=== PATIENT | male | born 1945 | race Hispanic/Latino ===

== ENCOUNTER 2018-08-08 14:35 | Outpatient (CLI) | payer MEDICARE, BC | END 2018-08-08 14:36 | disposition home or self-care (01) | LOC: RAD 14:35 ==

== ENCOUNTER 2018-09-26 13:34 | Outpatient (CLI) | payer MEDICARE, BC | END 2018-09-26 13:35 | disposition home or self-care (01) | LOC: LAB 13:34 ==

== ENCOUNTER 2018-10-31 10:10 | Outpatient (CLI) | payer MEDICARE, BC | END 2018-10-31 10:11 | disposition home or self-care (01) | LOC: CARDIO 10:10 ==